=== PATIENT | female | born 1990 | race African-American/Black ===

== ENCOUNTER 2024-05-10 09:48 | Emergency (ER) | payer MEDICAID, OTHER ==
[~2024-05-10] VITALS: Ht 172.7 cm; Wt 91.0 kg
[2024-05-10 10:01] VITALS: O2SAT 100
[2024-05-10] MEDS: DEXAMETHASONE 10 MG/ML VIAL PO ONE (12:53)
[2024-05-10] MEDS: KETOROLAC 30MG/ML VIAL IM ONE (12:53)
[2024-05-10] MEDS ORDERED: AMOX1TAB16 MT (14:13)
[2024-05-10 14:18] VITALS: BP 137/88; PULSE 81; RESP 18; TEMP 36.72516; O2SAT 100
== END 2024-05-10 14:34 | disposition home or self-care (01) ==
LOC: ER 09:48
DX: K11.20 Sialoadenitis, unspecified (principal)
CPT/HCPCS: 87430; 87070; 87804 ×2; 96372; 99283; 87426; J1100; J1885; Z7610 ×2; C1893

== ENCOUNTER 2025-03-07 11:26 | Emergency (ER) | payer SELFPAY ==
[~2025-03-07] VITALS: Ht 167.6 cm; Wt 100.0 kg
[~2025-03-07 11:26] MED LIST: AMOX1TAB16 MT
[2025-03-07 11:36] VITALS: O2SAT 99
[2025-03-07] MEDS ORDERED: DIPH25CA83 PO (12:44)
[2025-03-07] MEDS ORDERED: CETI10CA2 MT (12:44)
[2025-03-07 13:07] VITALS: BP 127/90; PULSE 86; RESP 16; TEMP 36.9; O2SAT 99
== END 2025-03-07 13:08 | disposition home or self-care (01) ==
LOC: ER 11:26
DX: R21 Rash and other nonspecific skin eruption (principal); T50.905A Adverse effect of unspecified drugs, medicaments and biological substances, initial encounter; I10 Essential (primary) hypertension; Y92.89 Other specified places as the place of occurrence of the external cause
CPT/HCPCS: 99282